=== PATIENT | male | born 1970 | race Hispanic/Latino ===

== ENCOUNTER 2021-06-24 17:33 | Emergency (ER) | payer OTHER ==
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
[2021-06-24] MEDS ORDERED: HYDROCODONE/APAP 5/325 MG TAB ONE (18:29)
[2021-06-24] MEDS ORDERED: ONDANSETRON 4 MG/2 ML VIAL ONE ×2 (20:10→21:40)
[2021-06-24] MEDS ORDERED: MORPHINE 4 MG/ML SYR ONE ×2 (20:10→21:40)
[2021-06-24 20:33] LABS: Hematocrit 42.1 % (39.6-49.0); Lymphocytes % 33.3 % (15.3-44.8); MPV 8.1 fL (7.6-11.3); RBC Red Blood Cell Count 5.08 M/uL (4.33-5.43)
[2021-06-24 20:51] LABS: Potassium 4.1 mmol/L (3.5-5.1)
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
[2021-06-24 22:17] VITALS: TEMP 98.6
[2021-06-24 22:18] VITALS: BP 137/97; O2SAT 99
== END 2021-06-24 22:06 | disposition home or self-care (01) ==
LOC: ER 17:33
DX: R07.89 Other chest pain (principal); R51.9 Headache, unspecified; V49.40XA Driver injured in collision with unspecified motor vehicles in traffic accident, initial encounter; Z85.820 Personal history of malignant melanoma of skin; Z88.0 Allergy status to penicillin
CPT/HCPCS: 85025; 80048; 36415; 82565; 70450; 72125; 71260; 74177; 96375; 96374; 99284; Q9967; J2405 ×2